=== PATIENT | female | born 1940 | race Caucasian/White ===

== ENCOUNTER 2017-12-09 19:16 | Inpatient (IN) | payer MEDICARE ==
[~2017-12-09] VITALS: Ht 170.2 cm; Wt 75.1 kg
[~2017-12-09 19:16] MED LIST: CIPRO500 MG PO; FLAGYL500 MG PO; LOPRESSOR25 MG PO; MOBIC7.5 MG/5 M PO; PEPCID20 MG PO
[2017-12-09] MEDS ORDERED: SODIUM CHLORIDE 0.9% 500ML 500 ML IV STA (19:41)
[2017-12-09] MEDS ORDERED: MORPHINE SULFATE 2 MG/ML SYR IV STA (19:41)
[2017-12-09] MEDS ORDERED: ONDANSETRON HCL INJ 2 MG/ML VIAL IV STA (19:41)
[2017-12-09] MEDS ORDERED: SERTRALINE HCL50 MG PO (19:43)
[2017-12-09] MEDS ORDERED: SINEMET 25-1001 EACH PO (19:43)
[2017-12-09] MEDS ORDERED: ASPIRIN81 MG PO (19:43)
[2017-12-09] MEDS ORDERED: DIATRIZOATE MEGL/DIATRIZOA SOD 30 ML BTL PO ONE (19:46)
[2017-12-09 19:55] LABS: BASOPHILS % 0.3 % (0.0-1.0); EOSINOPHILS # (AUTO) 0.2 (0.0-0.4); EOSINOPHILS % 3.1 % (0.0-6.0); LYMPHOCYTES # (AUTO) 3.3 (1.0-3.2); LYMPHOCYTES % 45.7 % (18.0-39.1); MEAN CORPUSCULAR HEMOGLOBIN 31.7 pg (28-32); MEAN CORPUSCULAR HGB CONC 33.3 g/dL (31-35); MONOCYTES # (AUTO) 0.7 (0.2-0.8); MONOCYTES % 9.2 % (4.4-11.3); NEUTROPHILS % 41.6 % (38.7-80.0); PLATELET COUNT 353 x10e3/uL (140-360); RED BLOOD COUNT 4.42 x10e6/uL (3.6-5.1); RED CELL DISTRIBUTION WIDTH 12.3 % (11.7-14.4)
[2017-12-09 19:59] LABS: INR 1.02; PROTHROMBIN TIME 12.6 seconds (11.9-14.5)
[2017-12-09 20:00] LABS: PARTIAL THROMBOPLASTIN TIME 27.5 seconds (23.8-35.5)
[2017-12-09 20:04] LABS: CLARITY,URINE SL CLOUDY (CLEAR); COLOR,URINE YELLOW (YELLOW); LEUKOCYTE ESTERASE ,URINE 1+ (NEGATIVE)
[2017-12-09 20:05] LABS: BILIRUBIN,URINE NEGATIVE (NEGATIVE); KETONES,URINE NEGATIVE (NEGATIVE); NITRITE,URINE NEGATIVE (NEGATIVE); PROTEIN,URINE DIPSTICK TRACE (NEGATIVE); URINE UROBILINOGEN 0.2 mg/dL (0.2 - 1)
[2017-12-09 20:07] LABS: ALANINE AMINOTRANSFERASE 8 IU/L (0-55); ALBUMIN 3.7 g/dL (3.5-5.0); ALBUMIN/GLOBULIN RATIO 0.8 (0.8-2.0); ALKALINE PHOSPHATASE 79 IU/L (40-150); AMYLASE 69 U/L (25-125); ANION GAP 13.5 mmol/L (8-16); BLOOD UREA NITROGEN 11 mg/dL (7-26); BUN/CREATININE RATIO 13 (6-25); CALCIUM 9.6 mg/dL (8.4-10.2); CARBON DIOXIDE 28 mmol/L (22-29); CHLORIDE 103 mmol/L (98-107); CREATINE KINASE 48 IU/L (29-168); CREATININE, SERUM 0.84 mg/dL (0.57-1.11); EST GLOMERULAR FILTRATION RATE > 60 ML/MIN (60-); GLUCOSE 89 mg/dL (74-118); LIPASE 31 U/L (8-78); POTASSIUM 3.5 mmol/L (3.5-5.1); SODIUM 141 mmol/L (136-145)
--- NOTE | 2017-12-09 20:14 | Diagnostic Imaging Report ---
EXAMINATION: CHEST SINGLE (PORTABLE) INDICATION: Lower stomach pain. COMPARISON: Chest x-ray 01/31/2015 FINDINGS: AP view TUBES and LINES: None. LUNGS: Lungs are well inflated. Lungs are clear. There is no evidence of pneumonia or pulmonary edema. PLEURA: No pleural effusion or pneumothorax. HEART AND MEDIASTINUM: The cardiomediastinal silhouette is unremarkable. There are atherosclerotic calcifications within the aorta. BONES AND SOFT TISSUES: No acute osseous lesion. Bilateral calcified breast implants. UPPER ABDOMEN: No free air under the diaphragm. IMPRESSION: No acute thoracic abnormality. Signed by: Dr. Julio Barreto M.D. on 12/09/2017 8:11 PM
[2017-12-09 20:16] LABS: BACTERIA,URINE FEW /HPF; EPITHELIAL CELLS,URINE FEW /LPF; MUCUS,URINE FEW (RARE)
--- NOTE | 2017-12-09 21:38 | Diagnostic Imaging Report ---
EXAM: CT ABDOMEN/PELVIS W DATE: 12/09/2017 7:41 PM INDICATION: \S\abd pain \[id number] \S\[id number] COMPARISON: None TECHNIQUE: The abdomen and pelvis were scanned using a multidetector helical scanner. Coronal and sagittal reformations were obtained. Routine protocol performed. IV Contrast: 100 ml Isovue 300/370 FINDINGS: LOWER THORAX: Mild bibasilar atelectasis/scarring.. Note is made of prior mammoplasty. LIVER/BILIARY: Punctate too small to characterize left liver hypodensity. Otherwise unremarkable. GALLBLADDER: Unremarkable SPLEEN: Unremarkable PANCREAS: Unremarkable ADRENALS: No nodules KIDNEYS: Several too small to characterize hypodensities, likely cysts. No hydronephrosis. GI TRACT: Small hiatal hernia. There is mild thickening of the sigmoid colon in an area of diverticulosis with adjacent inflammatory stranding. VESSELS: Moderate atherosclerotic changes. PERITONEUM/RETROPERITONEUM: Trace free fluid along the sigmoid colon LYMPH NODES: No lymphadenopathy REPRODUCTIVE ORGANS/BLADDER: Hysterectomy. Otherwise unremarkable. BONES: Scattered degenerative changes worst at L5-S1. IMPRESSION: Acute uncomplicated sigmoid diverticulitis. Recommend follow-up with colonoscopy once the acute episode has resolved. Signed by: Dr Fartun Pardo MD on 12/09/2017 9:35 PM
[2017-12-09] MEDS ORDERED: MORPHINE SULFATE 2 MG/ML SYR IV PRN (21:45)
[2017-12-09] MEDS: SODIUM CHLORIDE 0.9% 1000ML 1,000 ML IV SCH (21:45)
[2017-12-09] MEDS ORDERED: METRONIDAZOLE 500MG/NS 100ML 100 ML IV SCH (22:00)
[2017-12-09] MEDS ORDERED: SODIUM CHLORIDE 0.9% 50ML 50 ML ONE (22:50)
[2017-12-09] MEDS ORDERED: IOPAMIDOL 370 MG/ML 200 ML INFUS..BTL INJ ONE (22:51)
[2017-12-09] MEDS ORDERED: METRONIDAZOLE 500 MG TAB ONE (23:12)
[2017-12-09] MEDS ORDERED: PIPER-TAZ 3.375 GM 50 ML ONE (23:12)
[2017-12-09] MEDS: PIPER-TAZ 3.375 GM 50 ML IV SCH (23:19)
[2017-12-09] MEDS: METRONIDAZOLE 500 MG TAB PO SCH (23:20)
[2017-12-10] VITALS (7 sets, daily range): BP systolic 127–170; BP diastolic 61–81
[2017-12-10] MEDS: PIPER-TAZ 3.375 GM 50 ML IV SCH
[2017-12-10] MEDS ORDERED: SODIUM CHLORIDE 0.9% 1000ML 1,000 ML ONE (01:27)
[2017-12-10] MEDS: SODIUM CHLORIDE 0.9% 1000ML 1,000 ML IV SCH ×2 (01:29→14:00)
[2017-12-10] MEDS ORDERED: PIPER-TAZ 3.375 GM 50 ML IV SCH (05:00)
[2017-12-10] MEDS ORDERED: METRONIDAZOLE 500 MG TAB PO SCH (05:01)
[2017-12-10 06:35] LABS: BASOPHILS % 0.6 % (0.0-1.0); EOSINOPHILS # (AUTO) 0.3 (0.0-0.4); EOSINOPHILS % 3.7 % (0.0-6.0); HEMATOCRIT 38.1 % (34.2-44.1); HEMOGLOBIN 12.5 g/dL (12.0-16.0); LYMPHOCYTES # (AUTO) 3.1 (1.0-3.2); LYMPHOCYTES % 43.9 % (18.0-39.1); MEAN CORPUSCULAR HEMOGLOBIN 31.5 pg (28-32); MEAN CORPUSCULAR HGB CONC 32.8 g/dL (31-35); MONOCYTES # (AUTO) 0.8 (0.2-0.8); MONOCYTES % 10.9 % (4.4-11.3); NEUTROPHILS # (AUTO) 2.9 (2.1-6.9); NEUTROPHILS % 40.8 % (38.7-80.0); PLATELET COUNT 319 x10e3/uL (140-360); RED BLOOD COUNT 3.97 x10e6/uL (3.6-5.1); RED CELL DISTRIBUTION WIDTH 12.3 % (11.7-14.4)
[2017-12-10 06:49] LABS: ANION GAP 11.3 mmol/L (8-16); BLOOD UREA NITROGEN 10 mg/dL (7-26); BUN/CREATININE RATIO 12 (6-25); CARBON DIOXIDE 26 mmol/L (22-29); CHLORIDE 104 mmol/L (98-107); CREATININE, SERUM 0.82 mg/dL (0.57-1.11); EST GLOMERULAR FILTRATION RATE > 60 ML/MIN (60-); GLUCOSE 94 mg/dL (74-118); POTASSIUM 3.3 mmol/L (3.5-5.1); SODIUM 138 mmol/L (136-145)
[2017-12-10] MEDS ORDERED: POTASSIUM CHLORIDE 20 MEQ TAB CR PO ONE (11:00)
[2017-12-10] MEDS: LEVOFLOXACIN 500MG/D5W 100ML 100 ML IV SCH (11:00)
[2017-12-10] MEDS ORDERED: METRONIDAZOLE 500MG/NS 100ML 100 ML IV SCH (14:00)
[2017-12-10] MEDS: METRONIDAZOLE 500 MG TAB PO SCH ×3 (14:00→21:38)
[2017-12-10] MEDS: HEPARIN SOD (PORCINE) 5,000 UNIT/ML VIAL SC SCH (21:38)
[2017-12-11] VITALS (9 sets, daily range): BP systolic 130–167; BP diastolic 63–90
[2017-12-11] MEDS: METRONIDAZOLE 500 MG TAB PO SCH ×3 (06:34→21:12)
[2017-12-11] MEDS: SODIUM CHLORIDE 0.9% 1000ML 1,000 ML IV SCH ×2 (06:34→16:10)
[2017-12-11] MEDS: HEPARIN SOD (PORCINE) 5,000 UNIT/ML VIAL SC SCH ×2 (09:00→21:13)
[2017-12-11] MEDS: LEVOFLOXACIN 500MG/D5W 100ML 100 ML IV SCH (11:00)
[2017-12-11] MEDS: CARBIDOPA/LEVODOPA 25/100 TAB PO SCH ×3 (13:55→21:12)
[2017-12-12] VITALS (7 sets, daily range): BP systolic 132–153; BP diastolic 62–92
[2017-12-12] MEDS: CARBIDOPA/LEVODOPA 25/100 TAB PO SCH ×5 (05:00→21:00)
[2017-12-12] MEDS: SODIUM CHLORIDE 0.9% 1000ML 1,000 ML IV SCH (05:01)
[2017-12-12] MEDS: METRONIDAZOLE 500 MG TAB PO SCH ×3 (05:01→21:00)
[2017-12-12] MEDS: SERTRALINE HCL 50 MG TAB PO SCH (09:00)
[2017-12-12] MEDS: HEPARIN SOD (PORCINE) 5,000 UNIT/ML VIAL SC SCH ×2 (09:00→21:00)
[2017-12-12] MEDS ORDERED: AMOXICILLIN/CLAVULANATE K 500 MG TAB PO SCH (12:00)
[2017-12-12] MEDS: LEVOFLOXACIN 500MG/D5W 100ML 100 ML IV SCH (12:15)
[2017-12-12] MEDS: ONDANSETRON HCL INJ 2 MG/ML VIAL IV PRN ×2 (14:10→21:00)
[2017-12-13] VITALS: BP 136/74
[2017-12-13 04:00] VITALS: BP 130/63
[2017-12-13 04:32] LABS: BASOPHILS % 0.1 % (0.0-1.0); EOSINOPHILS # (AUTO) 0.3 (0.0-0.4); EOSINOPHILS % 3.4 % (0.0-6.0); HEMATOCRIT 36.9 % (34.2-44.1); HEMOGLOBIN 12.3 g/dL (12.0-16.0); LYMPHOCYTES # (AUTO) 3.1 (1.0-3.2); LYMPHOCYTES % 40.4 % (18.0-39.1); MEAN CORPUSCULAR HEMOGLOBIN 31.4 pg (28-32); MEAN CORPUSCULAR HGB CONC 33.3 g/dL (31-35); MEAN CORPUSCULAR VOLUME 94.1 fL (81-99); MONOCYTES # (AUTO) 0.8 (0.2-0.8); MONOCYTES % 10.5 % (4.4-11.3); NEUTROPHILS # (AUTO) 3.5 (2.1-6.9); NEUTROPHILS % 45.3 % (38.7-80.0); PLATELET COUNT 302 x10e3/uL (140-360); RED BLOOD COUNT 3.92 x10e6/uL (3.6-5.1); RED CELL DISTRIBUTION WIDTH 12.4 % (11.7-14.4)
[2017-12-13 04:47] LABS: ANION GAP 11.2 mmol/L (8-16); CREATININE, SERUM 0.91 mg/dL (0.57-1.11); MAGNESIUM 1.8 MG/DL (1.3-2.1); POTASSIUM 3.2 mmol/L (3.5-5.1)
[2017-12-13] MEDS: METRONIDAZOLE 500 MG TAB PO SCH (05:20)
[2017-12-13] MEDS: CARBIDOPA/LEVODOPA 25/100 TAB PO SCH ×2 (05:20→08:35)
[2017-12-13 08:00] VITALS: BP 129/58
[2017-12-13] MEDS: SERTRALINE HCL 50 MG TAB PO SCH (08:35)
[2017-12-13 08:38] VITALS: BP 130/63
[2017-12-13 12:00] VITALS: BP 119/60
[2017-12-13] MEDS: LEVOFLOXACIN 500MG/D5W 100ML 100 ML IV SCH (12:55)
[2017-12-13] MEDS ORDERED: POTASSIUM CHLORIDE 20 MEQ TAB CR PO NR (14:45)
--- NOTE | 2017-12-13 14:51 | Discharge Summary ---
PRIMARY CARE DOCTOR: Dr. Lizzette Huggins. FINAL DIAGNOSIS: Acute sigmoid diverticulitis. SECONDARY DIAGNOSIS: Parkinson's disease. PROCEDURES/STUDIES PERFORMED: Abdominal CT. CONSULTANTS: None. HISTORY: Per H\T\P. HOSPITAL COURSE: Patient was admitted. Antibiotic was started. Patient did well. Abdominal pain has resolved. Patient will go home on p.o. Levaquin and Flagyl x3 more days to complete a 1-week course. Patient received IV Levaquin and Flagyl while at the hospital. Patient was seen and examined today. Condition on discharge stable. DISCHARGE MEDICATIONS: Please see medication reconciliation form. I have updated her PCP about this hospitalization. She will follow up with her in a week. Patient received heparin subcutaneous for DVT prophylaxis. JUVE JONES M.D. Job#: [id number] EV cc:LIZZETTE HUGGINS MD
[2017-12-13] MEDS ORDERED: LEVAQUIN500 MG PO (15:16)
[2017-12-13] MEDS ORDERED: FLAGYL250 MG PO (15:17)
[2017-12-13] MEDS ORDERED: MORPHINE SULFATE INJ 4 MG/ML INJ IV PRN (15:30)
== END 2017-12-13 16:50 | disposition home or self-care (01) | DRG 392 ==
LOC: ER 19:16 → ERHOLD 22:00 → MED/SURG2 23:46
PROVIDERS: ADMIT Internal Medicine; ATTEND Internal Medicine
DX: K57.92 Diverticulitis of intestine, part unspecified, without perforation or abscess without bleeding (principal); E87.6 Hypokalemia; G20 Parkinson's disease; I10 Essential (primary) hypertension; F17.210 Nicotine dependence, cigarettes, uncomplicated
CPT/HCPCS: 36415; 71045; 74177; 80048; 80053; 81001; 82150; 82550; 82553; 83690; 83735; 84484; 85025; 85610; 85730; 97139; 99284; J1644; J1956; J2270; J2405; J2543; J7030; J7040; Q9967

== ENCOUNTER 2018-08-18 00:29 | Inpatient (IN) | payer MEDICARE ==
[~2018-08-18] VITALS: Ht 172.7 cm; Wt 84.5 kg
[~2018-08-18 00:29] MED LIST changes: +ASPIRIN81 MG PO; +FLAGYL250 MG PO; +LEVAQUIN500 MG PO; +SERTRALINE HCL50 MG PO; +SINEMET 25-1001 EACH PO
--- NOTE | 2018-08-18 01:49 | Diagnostic Imaging Report ---
History:fall Comparison studies: None Technique: Axial images were obtained from the skull base to the vertex. Coronal and sagittal images reconstructed from the axial data. Dose modulation, iterative reconstruction, and/or weight based adjustment of the mA/kV was utilized to reduce the radiation dose to as low as reasonably achievable. Intravenous contrast: None Findings: Scalp/skull: No abnormalities. Extra-axial spaces: No masses. No fluid collections. Brain sulci: Moderately prominent. Ventricles: Moderate compensatory dilatation. No hydrocephalus. Parenchyma: Ill-defined confluent hypodensities in the supratentorial white matter are small vessel ischemic changes. No masses, hemorrhage, acute or chronic cortical vascular insults. Sellar/suprasellar region: No abnormalities. Craniocervical junction: Patent foramen magnum. No Chiari one malformation. Incidental findings: Atherosclerotic calcifications in the carotid siphons . Impression: No acute abnormalities. Chronic findings: 1. Moderate generalized volume loss. 2. Moderate supratentorial white matter small vessel ischemic changes. Signed by: Dr. Dave Han M.D. on 08/18/2018 1:45 AM
--- NOTE | 2018-08-18 01:53 | Diagnostic Imaging Report ---
History: Fall Comparison studies: None Technique: Axial images were obtained through the cervical region.. Coronal and sagittal images reconstructed from the axial data. Dose modulation, iterative reconstruction, and/or weight based adjustment of the mA/kV was utilized to reduce the radiation dose to as low as reasonably achievable. Intravenous contrast: None Findings: Fractures: None. Soft tissues: No gross abnormalities. Atlantoaxial articulation: Intact. Alignment: Normal lordosis. 2 mm anterolisthesis of C7 on T1. No scoliosis. Cervicomedullary junction: No abnormalities. The foramen magnum is patent. Vertebrae: No infection or neoplasm. Postsurgical changes: Patient status post anterior cervical fusion from C4 to C7 Hardware in place. No loosening or failure. The intervening disc spaces are fused. Degenerative changes: Mildly degenerated discs at C3-4 and at C7-T1. Mild facet arthrosis from C7 to T1. Foraminal stenosis, moderate left C3-4, mild left C4-5 and C5-6 due to facet and uncoarthrosis No significant spinal canal stenosis in spite of a disc osteophyte complex at C5-6 IMPRESSION: 1. No acute abnormalities. No fractures. 2. Cannot adequately evaluate for ligament, spinal cord and or vascular abnormalities. 3. Patient status post anterior cervical fusion from C4 to C7. Hardware in place. No loosening or failure. 4. Degenerative changes as described. Signed by: Dr. Dave Han M.D. on 08/18/2018 1:50 AM
--- NOTE | 2018-08-18 01:55 | Diagnostic Imaging Report ---
Examination: Single AP view of the chest. COMPARISON: Portable chest 12/09/2017 INDICATION: Shortness of breath IMPRESSION: 1. Lines and Tubes: None 2. Lungs are grossly clear. No consolidation or effusion. 3. Cardiomediastinal silhouette is normal. Pulmonary vasculature is normal. 4. No acute bony abnormalities. Signed by: Dr. Ted South M.D. on 08/18/2018 1:52 AM
--- NOTE | 2018-08-18 01:57 | Diagnostic Imaging Report ---
EXAMINATION: Pelvis Films CLINICAL HISTORY:Pain, status post fall COMPARISON: None. DISCUSSION: Mild osteopenia. No acute, displaced fractures or dislocations. Mild degenerative changes in bilateral hip joints. No gross soft tissue abnormalities. No osteolytic or osteoblastic lesions. Soft tissues are grossly unremarkable. IMPRESSION: 1. No acute, displaced fracture or dislocation. Signed by: Dr. Ted South M.D. on 08/18/2018 1:53 AM
[2018-08-18] MEDS ORDERED: DIPHENHYDRAMINE HCL ELIX 12.5 MG/5 ML UDC ONE (02:27)
[2018-08-18] MEDS ORDERED: ACETAMINOPHEN 325 MG TAB PO ONE (02:30)
[2018-08-18 02:31] LABS: BASOPHILS % 0.2 % (0.0-1.0); EOSINOPHILS % 0.3 % (0.0-6.0); HEMATOCRIT 45.2 % (34.2-44.1); HEMOGLOBIN 14.9 g/dL (12.0-16.0); LYMPHOCYTES # (AUTO) 1.1 (1.0-3.2); LYMPHOCYTES % 12.5 % (18.0-39.1); MEAN CORPUSCULAR HEMOGLOBIN 31.9 pg (28-32); MEAN CORPUSCULAR VOLUME 96.8 fL (81-99); MONOCYTES # (AUTO) 0.6 (0.2-0.8); MONOCYTES % 6.8 % (4.4-11.3); NEUTROPHILS # (AUTO) 7.2 (2.1-6.9); PLATELET COUNT 298 x10e3/uL (140-360); RED BLOOD COUNT 4.67 x10e6/uL (3.6-5.1); RED CELL DISTRIBUTION WIDTH 12.6 % (11.7-14.4)
[2018-08-18 02:51] LABS: ALANINE AMINOTRANSFERASE 8 IU/L (0-55); ALBUMIN 3.9 g/dL (3.5-5.0); ALKALINE PHOSPHATASE 73 IU/L (40-150); ANION GAP 14.4 mmol/L (8-16); BLOOD UREA NITROGEN 12 mg/dL (7-26); BUN/CREATININE RATIO 13 (6-25); CALCIUM 9.6 mg/dL (8.4-10.2); CARBON DIOXIDE 23 mmol/L (22-29); CHLORIDE 103 mmol/L (98-107); CREATINE KINASE 70 IU/L (29-168); EST GLOMERULAR FILTRATION RATE > 60 ML/MIN (60-); GLUCOSE 121 mg/dL (74-118); POTASSIUM 3.4 mmol/L (3.5-5.1); SODIUM 137 mmol/L (136-145)
[2018-08-18 05:58] LABS: BILIRUBIN,URINE 2+ (NEGATIVE); CLARITY,URINE SL CLOUDY (CLEAR); COLOR,URINE AMBER (YELLOW); KETONES,URINE TRACE (NEGATIVE); LEUKOCYTE ESTERASE ,URINE NEGATIVE (NEGATIVE); PROTEIN,URINE DIPSTICK TRACE (NEGATIVE); URINE UROBILINOGEN 0.2 mg/dL (0.2 - 1)
[2018-08-18 05:59] LABS: NITRITE,URINE NEGATIVE (NEGATIVE)
[2018-08-18 06:15] LABS: BACTERIA,URINE RARE /HPF; EPITHELIAL CELLS,URINE RARE /LPF; WBC,URINE (MAN) 0-5 /HPF (0-5)
[2018-08-18 09:09] LABS: CREATINE KINASE MB 0.8 ng/mL (0-5.0)
--- NOTE | 2018-08-18 10:05 | NUR ---
ECHO COMPLETED AT BEDSIDE PATIENT PLACED ON HOSPITAL BED
--- NOTE | 2018-08-18 11:27 | NUR ---
DR. JONES AT BEDSIDE EVALUATING PATIENT
[2018-08-18] MEDS ORDERED: ONDANSETRON HCL INJ 2MG/ML 2ML 2 MG/ML VIAL IV PRN (11:30)
[2018-08-18] MEDS ORDERED: ACETAMINOPHEN 325 MG TAB PO PRN (11:30)
[2018-08-18] MEDS ORDERED: SODIUM CHLORIDE 0.9% 1000ML 1,000 ML IV SCH (11:30)
[2018-08-18] MEDS ORDERED: POTASSIUM CHLORIDE 20 MEQ TAB CR PO NR (12:00)
--- NOTE | 2018-08-18 13:20 | Diagnostic Imaging Report ---
EXAMINATION: CT of the chest, abdomen and pelvis with contrast. TECHNIQUE: Spiral CT images of the chest, abdomen and pelvis were performed from the lung apices to the lesser trochanters after the intravenous administration of 100 cc of Isovue-370 and the oral administration of water. Coronal and sagittal reformatted images were obtained. COMPARISON: CT abdomen and pelvis with contrast 12/09/2017 CLINICAL HISTORY:Fever of unknown origin DISCUSSION: CHEST: LINES/TUBES: None. LUNGS AND AIRWAYS: Scattered foci of juxtapleural reticular and groundglass opacity compatible with fibrotic change or subsegmental atelectasis, worst in the bases. PLEURA: The pleural spaces are clear. HEART AND MEDIASTINUM: Visualized portions of the thyroid gland appear normal. No ectasia or aneurysmal dilatation of the thoracic aorta. Great vessel origins are normal in caliber and configuration. Atherosclerotic calcifications of the aorta and great vessel origins. Pulmonary outflow tract is of normal caliber. No central pulmonary embolus. Normal heart size. No pericardial effusion. LYMPH NODES: No axillary, hilar, or mediastinal lymphadenopathy is appreciated. BONES AND SOFT TISSUES: Osseous structures are discussed below. Bilateral peripherally calcified prepectoral breast implants. ABDOMEN/PELVIS: HEPATOBILIARY:Subcentimeter hypoattenuating lesion in segment 4 is too small to further characterize but likely to represent a small cyst. Otherwise no focal hepatic lesions. No biliary ductal dilation. The gallbladder is normal. SPLEEN: No splenomegaly. PANCREAS: No focal masses or ductal dilatation. ADRENALS: No adrenal nodules. KIDNEYS/URETERS: Subcentimeter hypoattenuating lesions in the kidneys that are too small to further characterize but likely represent small cysts. No hydronephrosis, calculi, or solid mass lesion. 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 PELVIC ORGANS/BLADDER: The urinary bladder is unremarkable. The uterus is not identified and has presumably been removed. No adnexal mass. PERITONEUM/RETROPERITONEUM: No ascites. No pneumoperitoneum. LYMPH NODES: No pelvic sidewall, retroperitoneal, or mesenteric lymphadenopathy. VESSELS: The abdominal aorta, major branch vessels, and iliac arterial systems are patent with mild atherosclerotic vascular disease. 2 right renal arteries and a single left renal artery are patent. Portal vein, splenic vein, and central superior mesenteric vein are patent. GI TRACT: The large bowel is notable for multiple sigmoid diverticula without wall thickening or inflammatory change. No right lower quadrant inflammatory changes. Small hiatal hernia. Stomach is collapsed with prominence of the rugal folds. Small probable submucosal duodenal lipoma is unchanged. No small bowel dilatation to suggest obstruction. BONES AND SOFT TISSUES: Cervical spine fusion hardware partially visualized. No osseous destructive lesions. Multilevel degenerative disc changes and facet arthropathy of the lumbar spine. No focal soft tissue abnormalities. IMPRESSION: Bandlike subsegmental atelectasis in the bilateral lower lung lobes. Otherwise no acute intrathoracic, abdominal, or pelvic CT abnormalities. No findings to explain the reported history of fever of unknown origin. Incidental findings include atherosclerotic vascular disease and large bowel diverticulosis without findings of diverticulitis. Signed by: Dr. Tristan Kamara M.D. on 08/18/2018 1:17 PM
[2018-08-18] MEDS: CARBIDOPA/LEVODOPA 25/100 TAB PO SCH ×3 (13:21→20:51)
--- NOTE | 2018-08-18 15:00 | NUR ---
The pt. was received from the ER awake,alert and oriented. via pt. bed. The pt. has telemetry and a functional iv with fluids at 100cc's per hour. She presented to the ER with recent history of fall at home but does not remember falling. There are no visible wounds noted. The pt. has cellphone with no moore but credits cards times 6 and was advised to send them home with the family. Dr Mesa has been notified of the pt's arrival and will see the pt.
[2018-08-18 15:49] VITALS: BP 124/76
[2018-08-18] MEDS ORDERED: IOPAMIDOL 370 MG/ML 200 ML INFUS..BTL INJ ONE (18:02)
[2018-08-18] MEDS ORDERED: SODIUM CHLORIDE 0.9% 50ML 50 ML ONE (18:02)
[2018-08-18 20:00] VITALS: BP_SYST 143; BP_SYST 146; BP_DIAS 83; BP_DIAS 92
[2018-08-19] VITALS (7 sets, daily range): BP systolic 118–144; BP diastolic 62–78
--- NOTE | 2018-08-19 01:49 | History and Physical ---
REASON FOR CONSULTATION: Syncope. HISTORY OF PRESENT ILLNESS: Ms. Flores is a 77-year-old female, who is a very difficult historian, who comes into this institution after being found down at her home by her son. The history is collaborated by her son who is at her bedside, which helped shed some light in her care sequence of events. She was in her usual state of health about 2 days ago and was doing well without any issues. At baseline, she has a history of Parkinson's disease and severe cervical and lumbar spine disease and had previous surgical interventions for them. At baseline, she also endorses a neuropathy that starts in her mid-waist section all the way down her legs and at baseline only has pressure-like sensation, however, has diminished sensory loss. The details of why this happened or what happened is not entirely clear, but this has been going on for couple of years now. She was in her usual state of health up until around 6:30 p.m. yesterday. Son reports that he spoke to his mother over the phone and she was doing well. At some point, she then went to the rest room and when the son came back home at 9:30 p.m., she was found down in the rest room, noted to be quite lethargic, not quite acting herself and the patient has no recollection of this. Her son called his son, the patient's grandson for help to carry her. They moved her to the chair of her house and proceeded to examine her and noted just overall generalized weakness and mentation was not quite correct with her being just surprisingly lethargic. At that point in time, they decided to bring her to the emergency room here. Upon arrival, she was noted to be borderline hypotensive, 96/50. She was scanned with a head CT, which was unremarkable as well as a CT of abdomen and pelvis and chest, which showed bibasilar atelectasis and large bowel diverticulosis. C-spine showed C4-C7 fusion plate and a pelvic x-ray was unremarkable. At the present time, son reports that the patient is much sharper in her thinking and is seemingly improving back to her baseline mentation state. She currently endorses just generalized weakness and does not have the energy or strength to sit up or do much. She did not have dizziness. She has never had episode like this before. No known history of seizures. The son does report that she has had history of TIAs in the past. PAST MEDICAL HISTORY: 1. COPD, former smoker. 2. History of anxiety. 3. Parkinson's disease. 4. Chronic back pain. 5. 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 PAST SURGICAL HISTORY: 1. History of hysterectomy. 2. History of lower back and cervical spine surgery. 3. History of carpal tunnel surgery. 4. History of breast surgery. FAMILY HISTORY: Father in his 70s, had heart disease in his 50s, had hypertension and cancer. Mother in her 70s, had hypertension and Parkinson's. SOCIAL HISTORY: She is . She lives with her son. Denies any alcohol or illicit drug use. ALLERGIES: INCLUDE FLU-VACCINE, PNEUMOVAX, ALBUTEROL, STATIN, DIAZEPAM, AND CODEINE. HOME MEDICATIONS: Include aspirin 81 mg daily use, Sinemet 25/100 mg t.i.d., and sertraline 50 mg q.h.s. REVIEW OF SYSTEMS: GENERAL: Denies any current fevers or chills or any weight changes. HEENT: No headaches, visual complaints, sore throat, or stuffiness. RESPIRATORY: Denies any pleuritic chest pain, has occasional cough. CARDIOVASCULAR: Denies any chest pain or subjective palpitations. No orthopnea or PND. GI: Denies any abdominal pain, bright red blood per rectum, melena, or hematemesis. Positive for bowel incontinence. : Has urinary incontinence. MUSCULOSKELETAL: Generalized weakness as noted above. Denies any typical claudication symptoms. ENDOCRINE: Denies any heat or cold intolerance. SKIN: No rashes. NEUROLOGIC: Positive for severe neuropathy in both of her legs and weakness as noted above and confusion as noted above. Remainder of review of systems is negative otherwise as mentioned. PHYSICAL EXAMINATION: VITAL SIGNS: Height of 68 inches, weight of 182 pounds, BMI is 27.7. Temperature of 98.0, pulse of 74, respiratory rate of 20, blood pressure of 140/74, and 98% on room air. GENERAL: This is a well-nourished, well-developed lady, who appears older than stated age, currently in no apparent distress. HEENT: Normocephalic, atraumatic. Pupils are equal, round, and reactive to light. Extraocular movements are intact. Oropharynx is clear. NECK: No elevation of jugular venous pulsation. No carotid bruits. CARDIOVASCULAR: Regular rate and rhythm . Normal S1 and S2. Soft 2/6 systolic murmur in left lower sternal border. LUNGS: Clear to auscultation bilaterally with good air entry. ABDOMEN: Soft, nontender, and obese. Normoactive bowel sounds. No hepatosplenomegaly. BACK: No costovertebral angle tenderness. EXTREMITIES: Warm with 2+ bilateral radial pulses, 2+ bilateral pedal pulses. NEUROLOGIC: Cranial nerves II through XII are intact. She has good probe operator strength and good pushing strength in her legs; however, there is notable central weakness, unable to sit upright and unable to do her gait evaluation. The patient has definite sensory deficits in both of her legs with subjective decreased sensation from the waist down. LABORATORY DATA: White count 8.99, hemoglobin 14.9, hematocrit 45.2, platelets of 298. Sodium 137, potassium 3.4, chloride 103, bicarb 22, BUN 12, creatinine 0.9, glucose of 121. Lactic acid level 23.8. AST 21, ALT 8, alk phos 73, total protein 7.7, albumin of 3.9. Troponin went from 0.017 to 0.015. UA showed 0 to 5 white cells. Chest x-ray is unremarkable. Pelvic x-ray unremarkable. C-spine CT shows C4 through C7 fusion. CT head shows moderate generalized volume loss with ischemic white matter disease. Chest CT shows atelectasis. Abdomen and pelvis CT shows a large bowel diverticulosis. DIAGNOSES: 1. Syncope - based on history and post-advanced confusion and elevated lactic highly suspicious for a neurologic event such as seizure. 2. History of Parkinson's disease, on sinemet therapy. 3. Former smoker. 4. Bowel and bladder incontinence, states secondary to her neuropathy below the waist. 5. Lactic acidosis. PLAN/RECOMMENDATIONS: 1. From a cardiovascular standpoint, the patient had echocardiogram done, which shows normal EF and low significant valvular disease. 2. Carotid artery duplex also done and reviewed showing no significant disease. 3. For the time being, we will recommend perhaps just continuing aspirin therapy. 4. We will monitor the patient's telemetry. 5. We will discuss with primary team. We will likely get a neurological evaluation for their input. 6. We will continue monitoring this patient with you. Thank you for this referral. MD DANDY Yuen/MILLIE /[id number]
[2018-08-19] MEDS: CARBIDOPA/LEVODOPA 25/100 TAB PO SCH ×5 (04:02→20:46)
[2018-08-19 05:00] LABS: BASOPHILS % 0.5 % (0.0-1.0); EOSINOPHILS % 0.4 % (0.0-6.0); HEMATOCRIT 40.8 % (34.2-44.1); HEMOGLOBIN 13.4 g/dL (12.0-16.0); LYMPHOCYTES # (AUTO) 1.1 (1.0-3.2); LYMPHOCYTES % 15.3 % (18.0-39.1); MEAN CORPUSCULAR HEMOGLOBIN 31.5 pg (28-32); MEAN CORPUSCULAR HGB CONC 32.8 g/dL (31-35); MEAN CORPUSCULAR VOLUME 95.8 fL (81-99); MONOCYTES # (AUTO) 0.9 (0.2-0.8); MONOCYTES % 12.7 % (4.4-11.3); NEUTROPHILS # (AUTO) 5.2 (2.1-6.9); NEUTROPHILS % 70.8 % (38.7-80.0); PLATELET COUNT 235 x10e3/uL (140-360); RED BLOOD COUNT 4.26 x10e6/uL (3.6-5.1); RED CELL DISTRIBUTION WIDTH 12.9 % (11.7-14.4)
[2018-08-19 05:39] LABS: ALBUMIN 3.5 g/dL (3.5-5.0); ALKALINE PHOSPHATASE 62 IU/L (40-150); ANION GAP 11.7 mmol/L (8-16); BLOOD UREA NITROGEN 10 mg/dL (7-26); BUN/CREATININE RATIO 12 (6-25); CALCIUM 8.6 mg/dL (8.4-10.2); CARBON DIOXIDE 25 mmol/L (22-29); CHLORIDE 103 mmol/L (98-107); CREATININE, SERUM 0.84 mg/dL (0.57-1.11); EST GLOMERULAR FILTRATION RATE > 60 ML/MIN (60-); GLUCOSE 95 mg/dL (74-118); POTASSIUM 3.7 mmol/L (3.5-5.1); SODIUM 136 mmol/L (136-145)
[2018-08-19 05:41] LABS: ALANINE AMINOTRANSFERASE < 6 IU/L (0-55)
[2018-08-19] MEDS: SERTRALINE HCL 50 MG TAB PO SCH (09:08)
[2018-08-19] MEDS: ASPIRIN 81 MG CHEW TAB PO SCH (09:08)
--- NOTE | 2018-08-19 10:17 | NUR ---
Screened patient for need for PT - she normally lives with her son but he works and she takes care of herself and uses RW. Patient has difficulty with balance and sidestepping and finding center of gravity. Would recommend PT eval, plan care and treat order when MD deems appropriate. Thank you, Yajaira Alfonso, PT Addendum: 08/19/18 at 1019 by Yajaira Alfonso PT Amended: Links added.
[2018-08-19] MEDS: BENZONATATE 100 MG CAP PO SCH ×2 (13:50→20:46)
--- NOTE | 2018-08-19 16:08 | NUR ---
Speech working with patient at this time. Bedside eval.
[2018-08-19] MEDS: PIPER-TAZ 3.375 GM 50 ML IV SCH (17:29)
--- NOTE | 2018-08-19 20:00 | NUR ---
Patient refused to get up for vitals.
[2018-08-20] VITALS (9 sets, daily range): BP systolic 99–147; BP diastolic 55–76
[2018-08-20] MEDS: PIPER-TAZ 3.375 GM 50 ML IV SCH ×5 (00:11→23:11)
--- NOTE | 2018-08-20 00:35 | Consultation ---
DATE OF CONSULTATION: REASON FOR CONSULTATION: The patient has fever and chills, shortness of breath. HISTORY OF PRESENT ILLNESS: This patient, who is a 77-year-old white female, not really any good source of information, but her daughter is at the bedside. The patient has a history of Parkinson's, history of COPD, former smoker, anxiety, chronic back pain, neuropathy. Apparently, the patient comes into the hospital because she was found down at her home by her family. The patient apparently passed out, but she is not so clear about it what happened exactly and then when she was at home and the family found that she is having fever. The patient does not really remember how long she has been having fever and she states that all started suddenly. The patient is currently lying in bed comfortably, has no complaints. PAST MEDICAL HISTORY: COPD, history of smoking in the past and anxiety, Parkinson disease, chronic back pain, and neuropathy. PAST SURGICAL HISTORY: Hysterectomy, low back surgery, cervical spine surgery, carpal tunnel, and breast surgery. SOCIAL HISTORY: There is no smoking, drug abuse, or alcohol abuse. She used to smoke, quit several years ago. REVIEW OF SYSTEMS: At the present time: HEENT: Negative. PULMONARY: Negative. CARDIAC: Negative. : Negative. GI: Negative. SKIN: There is no rash. ALLERGIES: ALBUTEROL AND STATIN. MEDICATIONS: At home, she is on aspirin and Sinemet. LABORATORY DATA: Reviewed. Her blood cultures, no growth in 24 hours. Her white count 7.36, hemoglobin 13, hematocrit of 40. Sodium 136, potassium 3.7, creatinine 0.84. Since admission, the patient was evaluated by Speech Therapy and apparently she does aspirate. Further studies being evaluated. Since she came here, she also had fever. Currently, there is no fever. She had a CAT scan of the abdomen and pelvis, which showed atelectasis in bilateral lower lobe, otherwise no abnormality in the abdomen. PHYSICAL EXAMINATION: GENERAL: She is currently alert, oriented, does not seem to be in acute distress. VITAL SIGNS: Stable. Currently afebrile, but she has been running fever since admission, temperature 101.5. HEENT: She is not pale or icteric. NECK: Supple. CHEST: Few crackles bilaterally. COR: S1, S2. No S3, S4, or murmur. ABDOMEN: Soft. Bowel sounds present. No tenderness. EXTREMITIES: No edema. SKIN: No rash. IMPRESSION AND PLAN: 1. Aspiration pneumonia. We will put the patient on Zosyn 3.375 IV q.6. plan, 5 days of antibiotics. 2. Parkinson disease. The family is telling me that she is at the baseline at the present time. Plan for her to be seen by Neurology. We will follow with you. MD CB Sánchez/MILLIE /[id number]
--- NOTE | 2018-08-20 01:45 | Consultation ---
DATE OF CONSULTATION: 08/19/2018 Neurology Consult Note HISTORY OF PRESENT ILLNESS: Ms. Flores is a 77-year-old right-hand dominant woman with past medical history significant for chronic obstructive pulmonary disease, Parkinson disease, dementia, and idiopathic peripheral neuropathy, admitted to [facility] on August 18, 2018, status post fall. Ms. Flores was in her usual state of health at approximately 1830 on the day of admission. At 2130, her son returned home to find the patient laying on the bathroom floor. Ms. Flores was conscious. However, she was unable to tell her son what had transpired. It is assumed the patient experienced a fall sometime between the hours of 1830 and 2130. It is unknown if the patient lost consciousness, but it is assumed she did. The duration of unconsciousness is not known. Once the patient regained consciousness, she was unable to lift herself from the floor. To her recollection, Ms. Flores does not report tongue biting. She does report urinary incontinence, but this is present at baseline. The patient does not report any bumps, bruises, or abrasions over her head, arms, legs, or torso. The patient does report some pain in her arms, but it is unclear if this is muscular pain or other pain. Ms. Flores does have a history of multiple prior falls. The patient does not report dizziness. Specifically, she does not report lightheadedness or a vertiginous sensation. Over the past few days, the patient has been febrile. Ms. Flores endorses a cough productive of yellow sputum. She does report nausea and vomiting as well as decreased oral intake over the past few days. The patient reports burning with urination, urinary frequency, and urinary urgency. Ms. Flores does not report a personal history of febrile seizures or other seizures. The patient's mother had a questionable history of seizures. The patient does not report prior head trauma or meningitis encephalitis. Ms. Flores was diagnosed with Parkinson disease approximately three years ago. She is prescribed Sinemet 25 to 100 mg one tablet by mouth five times daily for treatment of her Parkinson disease. However, the patient is not adherent with her medication regimen. Ms. Flores does not report symptoms of dysautonomia such as dizziness, palpitations, fluctuations in blood pressure, shortness of breath, etc. The patient does have an outpatient neurologist through [facility]. Ms. Flores was brought to the emergency center at [facility] on the evening of August 18, 2018, status post fall with confusion and generalized weakness. Upon arrival in the emergency center, the patient was febrile with a temperature of 100.9 degrees Fahrenheit, a blood pressure of 122/58 mmHg, and a pulse of 106 beats per minute. It should be noted, the patient became hypotensive with a blood pressure of 96/50 while in the emergency room. The patient's neurological examination was documented as being nonfocal. While in the emergency center, CT of the brain without contrast was performed. There was no evidence of recent large territorial ischemia or hemorrhage on this examination. Ms. Flores was then admitted to [facility] under observation status for further evaluation and treatment. REVIEW OF SYSTEMS: Cough productive of yellow sputum, nausea, vomiting, burning with urination, urinary frequency, urinary urgency, decreased oral intake, status post fall. Otherwise, a 12-point review of systems is negative. PAST MEDICAL HISTORY: Chronic obstructive pulmonary disease, Parkinson disease, dementia, idiopathic peripheral neuropathy, and diverticulosis. PAST SURGICAL HISTORY: Right carpal tunnel release, cervical spine surgery, partial hysterectomy, breast augmentation, and lumbar spine surgery. PAST HOSPITALIZATIONS: Surgeries/procedures as listed, childbirth x2, diverticulitis. FAMILY MEDICAL HISTORY: The patient's father is from an unknown cancer. Ms. Flores's mother is . She had Parkinson disease as well as possible seizures. The patient had three siblings, one brother and two sisters, all of whom are . The brother from natural causes. One sister from an unknown metastatic cancer. The second sister had Parkinson disease. Ms. Flores has two children, a son and a daughter, both of whom are alive. The son was recently diagnosed with a cerebral artery aneurysm. The patient's daughter has chronic obstructive pulmonary disease. SOCIAL HISTORY: Ms. Flores is . She is retired. The patient does not report current or prior tobacco, alcohol, or recreational drug use. HOME MEDICATIONS: Aspirin 81 mg by mouth daily, carbidopa levodopa 25-100 mg one tablet by mouth five times daily, and sertraline 50 mg by mouth daily. HOSPITAL MEDICATIONS: Acetaminophen, DuoNeb, aspirin, Tessalon Perles, Sinemet 25-100, Zofran, Zosyn, and sertraline. ALLERGIES: INFLUENZA VIRUS VACCINE, ALBUTEROL, ATORVASTATIN, CODEINE, DIAZEPAM, AND PNEUMOCOCCAL VACCINE. NO KNOWN FOOD ALLERGIES. NO KNOWN ALLERGIES TO LATEX. NO KNOWN ALLERGIES TO IODINE OR OTHER CONTRAST MATERIALS. PHYSICAL EXAMINATION: VITAL SIGNS: Height 68 inches, weight 182 pounds, BMI 27.7 kg/m2, blood pressure 125/67 mmHg, pulse 71 beats per minute, respiratory rate 18 breaths per minute, oxygen saturation 93% on room air, and temperature 100.4. GENERAL: The patient is awake and alert, does not appear distressed. Masked facies. HEENT: Normocephalic, atraumatic. Pupils are unequal, round, and sluggishly reactive to light. Moist mucous membranes. NECK: Supple. No appreciable thyromegaly. No appreciable carotid bruits. CARDIOVASCULAR: S1, S2, regular rate and rhythm. A low grade systolic ejection murmur is auscultated. No rubs or gallops. RESPIRATORY: Clear to auscultation bilaterally. No wheezes, rhonchi, or rales. EXTREMITIES: The skin is warm and dry. No clubbing, cyanosis, or edema. The posterior tibial and dorsalis pedis pulses are 1+ and symmetric. SKIN: No rashes or lesions. NEUROLOGIC: Memory/Attention: The patient is awake and alert, oriented to person. Cranial Nerves: Cranial nerve I-not tested. Cranial nerves II, III, IV, and -pupils are unequal and round, react sluggishly to light (from 4 mm to 2 mm on the left and from 3 mm to 2 mm on the right). Extraocular movements intact with the exception of impairment of upward gaze. No nystagmus. Cranial nerve V-sensation to light touch and pinprick is intact in the bilateral V1 through V3 distributions. Strength in the temporalis and masseter muscles are within normal limits. Cranial nerve VII-the face is symmetric as are all facial movements. Strength is within normal limits. Cranial nerve VIII-hearing is diminished to finger rub bilaterally. Cranial nerve IX, X-the soft palate elevates equally and symmetrically. Cranial nerve XI-normal strength of the bilateral sternocleidomastoid and trapezius muscles. Cranial nerve XII-the tongue protrudes midline and moves symmetrically from husw-yr-phav. Strength: Bulk is normal. Strength is 5/5 in the bilateral deltoids, biceps, triceps, wrist flexors and extensors, finger flexors and extensors, and intrinsic hand muscles. Bilateral leg flexors are 4-/5. The bilateral leg extensors are 4/5. Tone is mildly increased in the right arm and right leg. DTRs: Deep tendon reflexes are 1+ and symmetric at the triceps, biceps, and brachioradialis. Deep tendon reflexes are absent and symmetric at the patellas and Achilles. Plantar responses are flexor bilaterally. Sensation: Sensation is intact to light touch and pinprick in both arms and both legs. Cerebellar: Jzuplg-ixeq-aalbdn and heel-summers movements are slowed without dysmetria or other impairment. There is bilateral segmental hypokinesis with finger and toe tapping, right greater than left. Gait: Deferred. Speech: Hypophonic. Spontaneous speech is normal without appreciable dysarthria or aphasia. Repetition is intact. Involuntary Movements: None. Pronator Drift: None. LABORATORY DATA: A comprehensive metabolic panel is unremarkable. Cardiac enzymes are negative x2. Lactic acid 23.8. TSH 1.290. The CBC with differential and platelets reveals a white blood cell count of 7.32 with 70.8% neutrophils, 15.3% lymphocytes, 12.7% monocytes, 0.4% eosinophils, and 0.5% basophils. The hemoglobin and hematocrit are 13.4 and 40.8, respectively. The platelet count is 235. A urinalysis revealed omar colored urine, slightly cloudy, trace protein, trace ketones, and 2+ bilirubin. Blood cultures collected on August 18, 2018, revealed no growth after 24 hours. Urine cultures were not collected. DIAGNOSTIC STUDIES: Electrocardiogram on 08/19/2018: Normal sinus rhythm at 73 beats per minute. Pelvis x-ray on 08/18/2018: No acute displaced fracture or dislocation. CT of the brain without contrast on 08/18/2018: On my review, there is no evidence of recent large territorial ischemia, hemorrhage, mass, or mass effect. There is moderate diffuse cerebral atrophy with compensatory dilatation of the ventricles, more than expected for the patient's age. Their findings compatible with moderate to severe chronic small vessel ischemic disease. Chest x-ray on 08/18/2018: 1. Lines and tubes: None. 2. Lungs are grossly clear. No consolidation or effusion. 3. Cardiomediastinal silhouette is normal. Pulmonary vasculature is normal. 4. No acute bony abnormalities. CT of the cervical spine on 08/18/2018: No acute abnormalities are noted. No fractures. Postsurgical changes from an anterior cervical fusion from C4-C7 with hardware is noted. There is multilevel degenerative disk disease. The CT cannot adequately assess for ligament, spinal cord, or vascular abnormalities. Echocardiogram on 08/18/2018: Ejection fraction 60% to 65%. Trace tricuspid regurgitation. Bilateral carotid artery ultrasound with Doppler on 08/18/2018: There is no atherosclerosis in either carotid artery system. Flow is antegrade in the bilateral vertebral arteries. CT of the chest on 08/18/2018: Bandlike subsegmental atelectasis in the bilateral lower lung lobes. CT of the abdomen and pelvis on 08/18/2018: Incidental findings include atherosclerotic vascular disease and large bowel diverticulosis without findings of diverticulitis. No acute abnormalities are noted. There are no findings to explain the reported history of fever of unknown origin. ASSESSMENT AND PLAN: Ms. Flores is a 77-year-old right-hand dominant woman with past medical history significant for Parkinson disease, dementia, and idiopathic peripheral neuropathy (not adherent with medication), admitted to [facility], status post fall on August 18, 2018. A thorough neurological examination has been performed with findings detailed above. The patient's laboratory data and other diagnostic studies were reviewed and are documented above. There was some concern Ms. Flores may have experienced a seizure. However, in my opinion, this is unlikely. Ms. Flores has Parkinson disease and is not adherent with her medication regimen. This puts her at an increased risk for falls. The patient has peripheral neuropathy as well. This puts her at increased risk for falls. Furthermore, the patient endorses symptoms of infectious illness over the past few days including, but not limited to: Fevers, cough productive of yellow sputum, nausea, vomiting, decreased oral intake, burning with urination, urinary urgency, and urinary frequency. In my opinion, one or any combination of these diagnoses caused the patient to fall in her bathroom. As she fell, the patient likely struck her head on a piece of furniture or a wall resulting in loss of consciousness for an unknown duration of time. RECOMMENDATIONS: Are as follows: 1. A urine culture will be ordered for further evaluation of infectious illness. The results of the blood cultures will be followed. Continue treatment with intravenous antibiotics (Zosyn). Continue treatment with acetaminophen 650 mg by mouth every 6 hours as needed for mild pain (1 to 3) or fever greater than 100.8 degrees Fahrenheit. 2. Treatment with the patient's home medication of Sinemet 25 to 100 mg one tablet by mouth five times daily will be continued. 3. Orthostatic vital signs will be taken to evaluate for dysautonomia, which may be seen in patients with Parkinson disease. 4. Defer treatment of the remaining medical comorbidities to the primary and other services following the patient. Thank you for this consultation. I will continue to follow this patient while she remains in the hospital. TIME SPENT: 70 minutes. Carmela Newman MD CP/MILLIE /[id number] MTDD
[2018-08-20] MEDS: CARBIDOPA/LEVODOPA 25/100 TAB PO SCH ×5 (05:24→21:01)
[2018-08-20] MEDS: ASPIRIN 81 MG CHEW TAB PO SCH (09:13)
[2018-08-20] MEDS: BENZONATATE 100 MG CAP PO SCH ×3 (09:13→21:01)
[2018-08-20] MEDS: SERTRALINE HCL 50 MG TAB PO SCH (09:13)
[2018-08-20] MEDS: ALBUTEROL/IPRATROPIUM 3 ML NEB NEB PRN ×3 (09:30→19:15)
--- NOTE | 2018-08-20 11:02 | Progress Note ---
DATE: SUBJECTIVE: The patient did not complain of any lightheadedness or headache. There is no further syncope. She has no fevers. PHYSICAL EXAMINATION: VITAL SIGNS: The patient's temperature is 99.5 last night. Blood pressure is 142/76 and saturation is 91% on room air. HEENT: No facial swelling or erythema. CARDIAC: Regular rate and rhythm with normal S1 and S2. LUNGS: Auscultation of lungs reveals few rhonchi at both bases. ABDOMEN: Soft, nontender. There is no rebound or guarding. EXTREMITIES: No leg edema or calf tenderness. There is no cyanosis or clubbing. SKIN: No rashes. NEUROLOGICAL: No focal abnormalities. IMPRESSION: 1. Aspiration pneumonia with associated fever and sepsis present on admission. 2. Syncope. 3. Parkinson disease. PLAN: 1. Continue current antibiotics. 2. Continue to monitor. 3. Physical therapy. Bethel Perez MD [facility]/MILLIE /[id number]
[2018-08-20] MEDS ORDERED: SODIUM CHLORIDE 0.9% 1000ML 1,000 ML ONE (13:34)
[2018-08-20] MEDS: SODIUM CHLORIDE 0.9% 1000ML 1,000 ML IV SCH (14:12)
--- NOTE | 2018-08-20 21:07 | NUR ---
PATIENT COMPLAINT OF COUGH. SPOKE WITH DR. Duane BARBOSA COVERING FOR DR. JONES. NEW ORDERS RECEIVED.
[2018-08-20] MEDS: HYDROCODONE/CHLORPHENIRAMINE 5 ML LIQCR PO PRN (22:49)
[2018-08-21] VITALS (8 sets, daily range): BP systolic 118–171; BP diastolic 59–86
[2018-08-21] MEDS: SODIUM CHLORIDE 0.9% 1000ML 1,000 ML IV SCH ×2 (02:35→17:25)
--- NOTE | 2018-08-21 04:06 | Diagnostic Imaging Report ---
EXAM: Modified barium swallow INDICATION: Parkinson's and dysphagia COMPARISON: None FINDINGS: This examination was conducted in conjunction with speech pathologist. Patient was given, by mouth, liquids and solids of various consistencies. Examination showed premature spillage to the vallecula with mixed texture. No penetration or aspiration was seen. Mild vallecular, piriform sinus and base of tongue residue was noted with puree. Fluoro time: 4 minutes IMPRESSION: <No evidence of aspiration. Please see speech pathology report for detailed description and recommendations.> Signed by: Dr. Ted South M.D. on 08/21/2018 4:03 AM
[2018-08-21] MEDS: PIPER-TAZ 3.375 GM 50 ML IV SCH ×4 (05:13→23:50)
[2018-08-21] MEDS: CARBIDOPA/LEVODOPA 25/100 TAB PO SCH ×5 (05:13→20:42)
--- NOTE | 2018-08-21 05:47 | NUR ---
BP RECHECKED 152/78 MMHG. PATIENT IS ASYMPTOMATIC.
[2018-08-21 07:07] LABS: BASOPHILS % 0.4 % (0.0-1.0); EOSINOPHILS # (AUTO) 0.1 (0.0-0.4); EOSINOPHILS % 1.4 % (0.0-6.0); HEMATOCRIT 40.3 % (34.2-44.1); HEMOGLOBIN 12.9 g/dL (12.0-16.0); LYMPHOCYTES # (AUTO) 2.5 (1.0-3.2); LYMPHOCYTES % 50.2 % (18.0-39.1); MEAN CORPUSCULAR HEMOGLOBIN 31.8 pg (28-32); MEAN CORPUSCULAR VOLUME 99.3 fL (81-99); MONOCYTES # (AUTO) 0.6 (0.2-0.8); MONOCYTES % 11.6 % (4.4-11.3); NEUTROPHILS # (AUTO) 1.8 (2.1-6.9); NEUTROPHILS % 36.2 % (38.7-80.0); PLATELET COUNT 216 x10e3/uL (140-360); RED BLOOD COUNT 4.06 x10e6/uL (3.6-5.1); RED CELL DISTRIBUTION WIDTH 12.8 % (11.7-14.4)
[2018-08-21] MEDS: ALBUTEROL/IPRATROPIUM 3 ML NEB NEB PRN ×3 (07:18→19:29)
[2018-08-21 07:29] LABS: ALBUMIN 3.1 g/dL (3.5-5.0); ALBUMIN/GLOBULIN RATIO 0.8 (0.8-2.0); ALKALINE PHOSPHATASE 49 IU/L (40-150); ANION GAP 12.7 mmol/L (8-16); BLOOD UREA NITROGEN 10 mg/dL (7-26); BUN/CREATININE RATIO 12 (6-25); CALCIUM 8.5 mg/dL (8.4-10.2); CARBON DIOXIDE 27 mmol/L (22-29); CHLORIDE 103 mmol/L (98-107); CREATININE, SERUM 0.86 mg/dL (0.57-1.11); EST GLOMERULAR FILTRATION RATE > 60 ML/MIN (60-); GLUCOSE 75 mg/dL (74-118); POTASSIUM 3.7 mmol/L (3.5-5.1); SODIUM 139 mmol/L (136-145)
[2018-08-21 07:33] LABS: ALANINE AMINOTRANSFERASE < 6 IU/L (0-55)
[2018-08-21] MEDS: BENZONATATE 100 MG CAP PO SCH ×3 (09:04→20:42)
[2018-08-21] MEDS: ASPIRIN 81 MG CHEW TAB PO SCH (09:04)
[2018-08-21] MEDS: SERTRALINE HCL 50 MG TAB PO SCH (09:04)
--- NOTE | 2018-08-21 12:11 | Progress Note ---
DATE: 08/21/2018 SUBJECTIVE: The patient feels better. She has no syncope. She worked with physical therapy yesterday. PHYSICAL EXAMINATION: VITAL SIGNS: The blood pressure is 137/68 and the pulse is 57. Saturation is 99%. HEENT: Shows no facial swelling or erythema. CARDIAC: Reveals a regular rate and rhythm with a normal S1 and S2. There are no murmurs or rubs. LUNGS: Auscultation of lungs reveals clear breath sounds bilaterally. There is no wheezing. ABDOMEN: Soft and nontender. There is no rebound or guarding. EXTREMITIES: Show no leg edema or calf tenderness. There is no cyanosis or clubbing. LABORATORY DATA: The white blood cell count is 4.98 and the hemoglobin is 12.9. The platelet count is 216. The BUN to creatinine ratio is normal. The other electrolytes are within normal limits. IMPRESSION: 1. Aspiration pneumonia. 2. Syncope. 3. Parkinson disease. PLAN: 1. Continue antibiotics. 2. Physical therapy. 3. Continue monitor. Bethel Perez MD [facility]/MODL /[id number]
[2018-08-21] MEDS: HYDROCODONE/CHLORPHENIRAMINE 5 ML LIQCR PO PRN (12:39)
[2018-08-21 14:38] LABS: COLOR,URINE YELLOW (YELLOW)
[2018-08-21 14:39] LABS: BILIRUBIN,URINE NEGATIVE (NEGATIVE); CLARITY,URINE CLEAR (CLEAR); KETONES,URINE NEGATIVE (NEGATIVE); LEUKOCYTE ESTERASE ,URINE NEGATIVE (NEGATIVE); NITRITE,URINE NEGATIVE (NEGATIVE); PROTEIN,URINE DIPSTICK NEGATIVE (NEGATIVE); URINE UROBILINOGEN 0.2 mg/dL (0.2 - 1)
[2018-08-21 14:47] LABS: BACTERIA,URINE MODERATE /HPF; EPITHELIAL CELLS,URINE FEW /LPF; RBC,URINE 0-5 /HPF (0-5)
[2018-08-22] VITALS (8 sets, daily range): BP systolic 114–141; BP diastolic 57–81
[2018-08-22] MEDS: PIPER-TAZ 3.375 GM 50 ML IV SCH ×4 (06:02→23:41)
[2018-08-22] MEDS: SODIUM CHLORIDE 0.9% 1000ML 1,000 ML IV SCH (06:02)
[2018-08-22] MEDS: HYDROCODONE/CHLORPHENIRAMINE 5 ML LIQCR PO PRN (06:02)
[2018-08-22] MEDS: CARBIDOPA/LEVODOPA 25/100 TAB PO SCH ×5 (06:02→20:57)
--- NOTE | 2018-08-22 07:00 | NUR ---
Received patient mid fowlers position, side rails upx3, call light within reach. AAOX3 to time, person, place. Respirations even and unlabored. 2L NC. Instructed patient to use call light for assistance. Voiced understanding.
--- NOTE | 2018-08-22 08:57 | NUR ---
IMM letter delivered and explained to pt. She verbalized understanding. Signed copy placed in chart. Copy placed in pt's transition of care folder.
[2018-08-22] MEDS: BENZONATATE 100 MG CAP PO SCH ×3 (09:17→20:57)
[2018-08-22] MEDS: ASPIRIN 81 MG CHEW TAB PO SCH (09:17)
[2018-08-22] MEDS: SERTRALINE HCL 50 MG TAB PO SCH (09:17)
--- NOTE | 2018-08-22 14:00 | NUR ---
Resting in bed, family member at bedside. SPO2 94% on room air. Walked patient in hallway. SPO2 92% upon exertion. No s/s of acute distress noted.
--- NOTE | 2018-08-22 15:07 | Progress Note ---
DATE: SUBJECTIVE: The patient is ambulating better, but still complains of dizziness. She has a mild headache. PHYSICAL EXAMINATION: VITAL SIGNS: The patient is afebrile, blood pressure is 120/69, and saturation is 97%. HEENT: Shows no facial swelling or erythema. The nasal mucosa is normal. LYMPHATIC: Shows no submandibular, cervical, or supraclavicular adenopathy. CARDIAC: Reveals a regular rate and rhythm with a normal S1 and S2. There are no murmurs or rubs. LUNGS: Auscultation of the lungs reveals clear breath sounds bilaterally. There is no wheezing. ABDOMEN: Soft and nontender. There is no rebound or guarding. EXTREMITIES: Show no leg edema or calf tenderness. There is no cyanosis or clubbing. SKIN: Shows no rashes. IMPRESSION: 1. Continued dizziness and lightheadedness. 2. Aspiration pneumonia. 3. Parkinson disease. PLAN: 1. Stop Tussionex. 2. Re-evaluation by Neurology. 3. Continue antibiotics. 4. Continue physical therapy. MD HYACINTH Valentine/MILLIE /[id number]
--- NOTE | 2018-08-22 16:20 | NUR ---
GOT CHOICE LETTER SIGNED FOR [facility] FILED IN CHART AND FAXED CLINICALS TO REP. LET KNOW THAT RIGHT NOW NO DISCHARGE ORDER BUT MOST LIKELY FOR TOMORROW, CM WILL NOTIFY IF ANY CHANGES.
--- NOTE | 2018-08-22 16:23 | NUR ---
orthostatic VS in bed 121/69 P55 , sitting 117/99 P66, standing 129/74 P69
--- NOTE | 2018-08-22 18:46 | NUR ---
Resting in bed, no s/s of acute distress noted. Report to be given to oncoming nurse.
--- NOTE | 2018-08-22 20:10 | NUR ---
patient received. patient is resting in bed, AAOx3. Resp even and unlabored. No acute distress noted. Patient denies of any pain or discomfort at this time. call light within reach. instruct to call for assistance. bed low/locked. continue to monitor closely
[2018-08-22] MEDS ORDERED: SODIUM CHLORIDE 0.9% 250ML 250 ML ONE (23:32)
[2018-08-23] VITALS (7 sets, daily range): BP systolic 106–156; BP diastolic 55–80
--- NOTE | 2018-08-23 04:30 | NUR ---
orthostatic VS in bed 123/64 P65 , sitting 120/75 P70, standing 137/70 P74
[2018-08-23] MEDS: PIPER-TAZ 3.375 GM 50 ML IV SCH ×2 (05:29→12:08)
[2018-08-23] MEDS: CARBIDOPA/LEVODOPA 25/100 TAB PO SCH ×4 (05:29→16:50)
[2018-08-23] MEDS: BENZONATATE 100 MG CAP PO SCH ×2 (08:12→16:50)
[2018-08-23] MEDS: SERTRALINE HCL 50 MG TAB PO SCH (08:12)
[2018-08-23] MEDS: ASPIRIN 81 MG CHEW TAB PO SCH (08:12)
[2018-08-23] MEDS ORDERED: CEFDINIR300 MG PO (15:43)
[2018-08-23] MEDS ORDERED: LEVAQUIN500 MG PO (15:43)
--- NOTE | 2018-08-23 18:09 | NUR ---
Left AC IV discontinued. No signs of infiltration noted. 2x2 gauze and tape. Taken via wheelchair to personal care. AAOX3 to time, person,place. Respirations even and unlabored. Discharge instructions, rx, and all personal belongings taken with patient. Accompanied by missael
--- NOTE | 2018-08-23 19:34 | Discharge Summary ---
DISCHARGE MEDICATIONS: 1. Aspirin 81 mg p.o. daily. 2. Sinemet 25/100 one p.o. five times a day. 3. Sertraline 50 mg p.o. daily. 4. Omnicef 300 mg p.o. b.i.d. for 10 days. CONSULTING PHYSICIANS: 1. Dr. Newman of Neurology. 2. Dr. Bee of Cardiology. 3. Dr. Martel of Infectious Disease. DISCHARGE DIAGNOSES: 1. Syncope of unclear etiology. 2. Parkinson disease. 3. Aspiration pneumonia. RADIOGRAPHIC DATA: 1. Modified barium swallow shows no evidence of aspiration. 2. CT scan of the abdomen and pelvis shows no intrathoracic abnormalities. 3. CT scan of the chest shows some bibasilar atelectasis. HISTORY OF PRESENT ILLNESS: The patient is a 77-year-old woman. She has Parkinson disease. She was in her usual state of health until about two days prior to admission. She suddenly became lethargic and son had difficulty arousing her. When she awoke, she complained of severe weakness. HOSPITAL COURSE: The patient was admitted. She was initially evaluated by Cardiology. She had duplex studies of the carotids as well as an echocardiogram that showed no acute disease. She was also evaluated by Neurology. She was felt not to have any acute neurological problems. She was continued on her parkinsonian regimen. The patient was also found to have a urinary tract infection and possible aspiration pneumonia. She received IV antibiotics. At the time of discharge, she felt better. She was eager to go home. She did not want SNF placement. DISPOSITION: The patient will be discharged home. She will have home health. She will also have physical therapy. The patient will follow up with Dr. Matthew in 1 week. MD HYACINTH Valentine/MILLIE /[id number]
== END 2018-08-23 16:59 | disposition home or self-care (01) | DRG 871 ==
LOC: ER 00:29 → ERHOLD 07:05 → MED/SURG2 14:52 → OBSVTOIN 08-21 09:40
PROVIDERS: ADMIT Internal Medicine; ATTEND Internal Medicine
DX: A41.9 Sepsis, unspecified organism (principal); J69.0 Pneumonitis due to inhalation of food and vomit; E87.2 Acidosis; G93.40 Encephalopathy, unspecified; N39.0 Urinary tract infection, site not specified; R55 Syncope and collapse; Z88.7 Allergy status to serum and vaccine; Z88.5 Allergy status to narcotic agent; Z88.8 Allergy status to other drugs, medicaments and biological substances; G20 Parkinson's disease; F02.80 Dementia in other diseases classified elsewhere, unspecified severity, without behavioral disturbance, psychotic disturbance, mood disturbance, and anxiety; J44.9 Chronic obstructive pulmonary disease, unspecified; Z87.891 Personal history of nicotine dependence; Z82.49 Family history of ischemic heart disease and other diseases of the circulatory system; R32 Unspecified urinary incontinence; G60.9 Hereditary and idiopathic neuropathy, unspecified; Z91.81 History of falling; R51 Headache; I95.1 Orthostatic hypotension; E86.0 Dehydration; R53.81 Other malaise; F32.9 Major depressive disorder, single episode, unspecified
CPT/HCPCS: 36415; 70450; 71045; 71260; 72125; 72170; 74177; 74230; 80053; 81001; 82550; 82553; 83605; 83735; 84443; 84484; 85025; 86140; 87040; 87086; 93005; 93306; 93880; 94640; 97139; 99285; G0378; J2543; J7030; J7050; Q9967

== ENCOUNTER 2018-10-06 14:54 | Inpatient (IN) | payer MEDICARE, OTHER ==
[~2018-10-06] VITALS: Ht 172.7 cm; Wt 80.5 kg
[~2018-10-06 14:54] MED LIST changes: +CEFDINIR300 MG PO
[2018-10-06] MEDS ORDERED: SODIUM CHLORIDE 0.9% 1000ML 1,000 ML IV STA (15:20)
[2018-10-06] MEDS ORDERED: ACETAMINOPHEN 1000 MG/100 ML IV ONE (15:27)
[2018-10-06] MEDS ORDERED: DIATRIZOATE MEGL/DIATRIZOA SOD 30 ML BTL PO ONE (15:28)
[2018-10-06] MEDS: CEFEPIME 1GM/NS 0.9% 50 ML 50 ML IV ONE ×2 (15:30→15:47)
[2018-10-06 15:55] LABS: BASOPHILS % 0.3 % (0.0-1.0); EOSINOPHILS % 0.1 % (0.0-6.0); HEMATOCRIT 40.9 % (34.2-44.1); HEMOGLOBIN 13.9 g/dL (12.0-16.0); LYMPHOCYTES # (AUTO) 2.4 (1.0-3.2); LYMPHOCYTES % 15.8 % (18.0-39.1); MEAN CORPUSCULAR HEMOGLOBIN 32.1 pg (28-32); MEAN CORPUSCULAR VOLUME 94.5 fL (81-99); MONOCYTES # (AUTO) 1.1 (0.2-0.8); NEUTROPHILS # (AUTO) 11.6 (2.1-6.9); NEUTROPHILS % 76.5 % (38.7-80.0); PLATELET COUNT 307 x10e3/uL (140-360); RED BLOOD COUNT 4.33 x10e6/uL (3.6-5.1); RED CELL DISTRIBUTION WIDTH 12.5 % (11.7-14.4)
[2018-10-06 16:06] LABS: INR 0.91; PARTIAL THROMBOPLASTIN TIME 30.3 seconds (23.8-35.5); PROTHROMBIN TIME 12.7 seconds (11.9-14.5)
[2018-10-06 16:14] LABS: ALANINE AMINOTRANSFERASE 6 IU/L (0-55); ALBUMIN 3.6 g/dL (3.5-5.0); ALBUMIN/GLOBULIN RATIO 0.8 (0.8-2.0); ALKALINE PHOSPHATASE 68 IU/L (40-150); ANION GAP 12.4 mmol/L (8-16); BLOOD UREA NITROGEN 11 mg/dL (7-26); BUN/CREATININE RATIO 12 (6-25); CALCIUM 9.7 mg/dL (8.4-10.2); CARBON DIOXIDE 26 mmol/L (22-29); CHLORIDE 100 mmol/L (98-107); CREATINE KINASE 42 IU/L (29-168); CREATININE, SERUM 0.89 mg/dL (0.57-1.11); EST GLOMERULAR FILTRATION RATE > 60 ML/MIN (60-); GLUCOSE 123 mg/dL (74-118); POTASSIUM 3.4 mmol/L (3.5-5.1); SODIUM 135 mmol/L (136-145)
[2018-10-06 17:00] LABS: CLARITY,URINE HAZY (CLEAR); COLOR,URINE YELLOW (YELLOW)
[2018-10-06 17:01] LABS: BILIRUBIN,URINE NEGATIVE (NEGATIVE); KETONES,URINE TRACE (NEGATIVE); LEUKOCYTE ESTERASE ,URINE NEGATIVE (NEGATIVE); NITRITE,URINE NEGATIVE (NEGATIVE); PROTEIN,URINE DIPSTICK NEGATIVE (NEGATIVE); URINE UROBILINOGEN 1 mg/dL (0.2 - 1)
[2018-10-06 17:11] LABS: BACTERIA,URINE FEW /HPF; WBC,URINE (MAN) 0-5 /HPF (0-5)
--- NOTE | 2018-10-06 18:22 | Diagnostic Imaging Report ---
EXAM: CT Abdomen and Pelvis WITH contrast INDICATION: Left lower quadrant pain. Fever. COMPARISON: 08/18/2018. TECHNIQUE: Abdomen and pelvis were scanned utilizing a multidetector helical scanner from the lung base to the pubic symphysis after administration of IV contrast. Coronal and sagittal reformations were obtained. Routine protocol was performed. Scan was performed when during portal venous phase. IV CONTRAST: 100 cc Isovue-300. ORAL CONTRAST: Water RADIATION DOSE: Total DLP: 523.52 mGy*cm Estimated effective dose: (DLP x 0.015 x size factor) mSv COMPLICATIONS: None FINDINGS: LINES and TUBES: None. LOWER THORAX: Small hiatal hernia. Bilateral calcified breast implants. Bibasilar dependent atelectasis. HEPATOBILIARY: No focal hepatic lesions. No biliary ductal dilation. GALLBLADDER: No radio-opaque stones or sludge. No wall thickening. SPLEEN: No splenomegaly. PANCREAS: No focal masses or ductal dilatation. ADRENALS: No adrenal nodules KIDNEYS/URETERS: Kidneys enhance symmetrically. Duplicated left renal collecting system. No hydronephrosis. 6 mm cyst in the upper pole of the right kidney. 4 mm low-attenuation lesion in the lateral upper pole of the right kidney is indeterminate, however, stable in the short interval. 5 mm cyst in the upper pole of the left kidney. No stones. GI TRACT: There is asymmetric wall thickening of the sigmoid colon with the left wall measuring 2.7 cm on image 70 series 2. Underlying diverticula. Perisigmoid inflammatory changes and trace volume free fluid without lacunar the fluid collections. Findings are consistent with acute sigmoid diverticulitis. 9 mm diverticulum in the second portion of the duodenum on image 36 series 2. Appendix is nonvisualized. No appendicitis. PELVIC ORGANS/BLADDER: Status post hysterectomy. LYMPH NODES: No lymphadenopathy. VESSELS: There is mild atherosclerotic disease in the aorta and major arterial branches. PERITONEUM / RETROPERITONEUM: No free air or fluid. BONES: Unremarkable. SOFT TISSUES: Unremarkable. IMPRESSION: 1. Acute sigmoid diverticulitis without abscess formation. Signed by: Dr. Duane Mckinley M.D. on 10/06/2018 6:19 PM
[2018-10-06] MEDS ORDERED: METRONIDAZOLE 500MG/NS 100ML 100 ML IV SCH (18:30)
[2018-10-06] MEDS ORDERED: CIPROFLOXACIN 400 MG/D5W 200ML 200 ML IV SCH ×2 (18:45→19:30)
[2018-10-06] MEDS ORDERED: OXYBUTYNIN CHLO15 MG PO (19:25)
[2018-10-06] MEDS ORDERED: ACETAMINOPHEN 325 MG TAB PO PRN (20:00)
[2018-10-06] MEDS ORDERED: SODIUM CHLORIDE 0.9% 250ML 250 ML ONE (20:25)
[2018-10-06] MEDS: METRONIDAZOLE 500MG/NS 100ML 100 ML IV SCH (20:45)
[2018-10-06 21:00] VITALS: BP 159/71
[2018-10-06] MEDS ORDERED: SODIUM CHLORIDE 0.9% 50ML 50 ML ONE (22:22)
[2018-10-06] MEDS ORDERED: IOPAMIDOL 370 MG/ML 200 ML INFUS..BTL INJ ONE (22:22)
[2018-10-07] VITALS (8 sets, daily range): BP systolic 125–149; BP diastolic 58–70
[2018-10-07 05:36] LABS: BASOPHILS % 0.3 % (0.0-1.0); EOSINOPHILS # (AUTO) 0.3 (0.0-0.4); EOSINOPHILS % 2.7 % (0.0-6.0); HEMATOCRIT 37.3 % (34.2-44.1); HEMOGLOBIN 12.5 g/dL (12.0-16.0); LYMPHOCYTES # (AUTO) 2.7 (1.0-3.2); LYMPHOCYTES % 23.8 % (18.0-39.1); MEAN CORPUSCULAR HEMOGLOBIN 32.5 pg (28-32); MEAN CORPUSCULAR HGB CONC 33.5 g/dL (31-35); MEAN CORPUSCULAR VOLUME 96.9 fL (81-99); MONOCYTES # (AUTO) 0.8 (0.2-0.8); MONOCYTES % 7.5 % (4.4-11.3); NEUTROPHILS # (AUTO) 7.3 (2.1-6.9); NEUTROPHILS % 65.3 % (38.7-80.0); PLATELET COUNT 266 x10e3/uL (140-360); RED BLOOD COUNT 3.85 x10e6/uL (3.6-5.1); RED CELL DISTRIBUTION WIDTH 12.9 % (11.7-14.4)
[2018-10-07 05:58] LABS: ANION GAP 12.3 mmol/L (8-16); BLOOD UREA NITROGEN 9 mg/dL (7-26); BUN/CREATININE RATIO 11 (6-25); CALCIUM 9.2 mg/dL (8.4-10.2); CARBON DIOXIDE 26 mmol/L (22-29); CHLORIDE 105 mmol/L (98-107); CREATININE, SERUM 0.79 mg/dL (0.57-1.11); EST GLOMERULAR FILTRATION RATE > 60 ML/MIN (60-); GLUCOSE 81 mg/dL (74-118); POTASSIUM 3.3 mmol/L (3.5-5.1); SODIUM 140 mmol/L (136-145)
[2018-10-07] MEDS: METRONIDAZOLE 500MG/NS 100ML 100 ML IV SCH ×3 (06:00→21:07)
--- NOTE | 2018-10-07 06:00 | NUR ---
PT C/O PAIN TO LEFT AC. IV REMOVED WITH TIP INTACT. PRESSURE DRESSING APPLIED. NEW IV STARTED ON RIGHT FA 22G.
--- NOTE | 2018-10-07 07:50 | NUR ---
MET PATIENT FOR BEDSIDE REPORT, PATIENT ALERT AND AND ORIENTED TO PERSON, PLACE AND TIME, PATIENT DENIED PAIN, PATIENT SHOWED NO SIGNS OF DISTRESS.
[2018-10-07] MEDS ORDERED: LEVOFLOXACIN 750MG/D5W 150ML 150 ML IV SCH (10:45)
[2018-10-07] MEDS ORDERED: ONDANSETRON HCL INJ 2MG/ML 2ML 2 MG/ML VIAL IV PRN (10:45)
[2018-10-07] MEDS ORDERED: POTASSIUM CHLORIDE 20 MEQ TAB CR PO NR (11:00)
[2018-10-07] MEDS: CARBIDOPA/LEVODOPA 25/100 TAB PO SCH ×3 (13:09→21:07)
--- NOTE | 2018-10-07 15:05 | NUR ---
IMM EXPLAINED, SIGNED BY PT AND PLACED ON CHART COPY TO PT IN CARE TRANSITIONS FOLDER
--- NOTE | 2018-10-07 19:15 | NUR ---
Received patient in bedside report. Patient is A&Ox3. Lungs clear. Bowel sounds active. No edema noted. Skin intact. Non-skid footwear in place. R FA 22g IV asymptomatic, intact, and patent. No pain reported at this time. No S&S of distress noted. Bed locked in lowest position, side rails upx2, call light in reach.
[2018-10-07] MEDS: HEPARIN SOD (PORCINE) 5,000 UNIT/ML VIAL SC SCH (21:08)
[2018-10-08] VITALS (8 sets, daily range): BP systolic 126–154; BP diastolic 64–85
--- NOTE | 2018-10-08 04:46 | NUR ---
Patient resting in bed at this time. Patient reports no pain or discomfort. Bed locked in lowest position, side rails upx2, call light in reach.
[2018-10-08] MEDS: CARBIDOPA/LEVODOPA 25/100 TAB PO SCH ×4 (05:00→18:01)
[2018-10-08 05:26] LABS: BASOPHILS % 0.6 % (0.0-1.0); EOSINOPHILS # (AUTO) 0.4 (0.0-0.4); EOSINOPHILS % 5.7 % (0.0-6.0); HEMATOCRIT 36.5 % (34.2-44.1); HEMOGLOBIN 11.9 g/dL (12.0-16.0); LYMPHOCYTES # (AUTO) 2.2 (1.0-3.2); LYMPHOCYTES % 30.1 % (18.0-39.1); MEAN CORPUSCULAR HEMOGLOBIN 31.6 pg (28-32); MEAN CORPUSCULAR HGB CONC 32.6 g/dL (31-35); MEAN CORPUSCULAR VOLUME 97.1 fL (81-99); MONOCYTES # (AUTO) 0.8 (0.2-0.8); MONOCYTES % 10.4 % (4.4-11.3); NEUTROPHILS # (AUTO) 3.9 (2.1-6.9); NEUTROPHILS % 53.1 % (38.7-80.0); PLATELET COUNT 287 x10e3/uL (140-360); RED BLOOD COUNT 3.76 x10e6/uL (3.6-5.1); RED CELL DISTRIBUTION WIDTH 12.6 % (11.7-14.4)
[2018-10-08 05:41] LABS: ANION GAP 12.5 mmol/L (8-16); BLOOD UREA NITROGEN 9 mg/dL (7-26); BUN/CREATININE RATIO 10 (6-25); CALCIUM 9.2 mg/dL (8.4-10.2); CARBON DIOXIDE 27 mmol/L (22-29); CHLORIDE 104 mmol/L (98-107); CREATININE, SERUM 0.86 mg/dL (0.57-1.11); EST GLOMERULAR FILTRATION RATE > 60 ML/MIN (60-); GLUCOSE 85 mg/dL (74-118); MAGNESIUM 2.1 MG/DL (1.3-2.1); POTASSIUM 3.5 mmol/L (3.5-5.1); SODIUM 140 mmol/L (136-145)
[2018-10-08] MEDS: METRONIDAZOLE 500MG/NS 100ML 100 ML IV SCH (05:49)
--- NOTE | 2018-10-08 05:49 | NUR ---
Patient refused sinemet stating it was making her too nauseated and did not want to feel sick again.
--- NOTE | 2018-10-08 06:47 | NUR ---
RECEIVED REPORT FROM OFF GOING RN, MET PATIENT, PATIENT ALERT AND ORIENTED TIMES 4, PATIENT DENIED PAIN, PATIENT SHOWS NO SIGNS OF DISTRESS.
[2018-10-08] MEDS: HEPARIN SOD (PORCINE) 5,000 UNIT/ML VIAL SC SCH ×2 (09:30→21:59)
[2018-10-08] MEDS: SERTRALINE HCL 50 MG TAB PO SCH (09:33)
[2018-10-08] MEDS ORDERED: SODIUM CHLORIDE 0.9% 250ML 250 ML ONE (10:20)
[2018-10-08] MEDS: LEVOFLOXACIN 500 MG TAB PO SCH (11:35)
[2018-10-08] MEDS: METRONIDAZOLE 500 MG TAB PO SCH ×2 (14:40→21:58)
--- NOTE | 2018-10-08 19:20 | NUR ---
Received patient in bedside report. Patient is A&Ox3. Lung sounds clear, bowel sounds active, skin intact. R FA 22g IV asymptomatic, intact, and patent. No pain reported. No S&S of distress noted at this time. Bed locked in lowest position, side rails up x2, call light in reach.
[2018-10-09] VITALS: BP 134/63
[2018-10-09 06:05] VITALS: BP 136/63
[2018-10-09] MEDS: METRONIDAZOLE 500 MG TAB PO SCH ×2 (07:20→14:17)
--- NOTE | 2018-10-09 07:23 | NUR ---
MET PATIENT FOR BEDSIDE REPORT WITH OFF-GOING NURSE DANIELA, PATIENT ASKED HOW SHE IS, PATIENT STATED THAT SHE IS DOING GOOD, PATIENT ALERT AND ORIENTED TO PERSON, PLACE, TIME, AND SITUATION, PATIENT DENIED PAIN, PATIENT SHOW SIGNS OF DISTRESS.
[2018-10-09 07:33] VITALS: BP 140/68
[2018-10-09] MEDS: SERTRALINE HCL 50 MG TAB PO SCH (09:23)
[2018-10-09] MEDS: CARBIDOPA/LEVODOPA 25/100 TAB PO SCH (09:23)
[2018-10-09] MEDS: HEPARIN SOD (PORCINE) 5,000 UNIT/ML VIAL SC SCH (09:23)
[2018-10-09 09:37] VITALS: BP 140/68
[2018-10-09] MEDS ORDERED: SODIUM CHLORIDE 0.9% 250ML 250 ML ONE (10:29)
[2018-10-09 11:52] VITALS: BP 144/70
[2018-10-09] MEDS: LEVOFLOXACIN 500 MG TAB PO SCH (13:03)
[2018-10-09] MEDS ORDERED: ONDANSETRON HCL 4 MG ORAL DISINTEGRATING TAB PO PRN (13:15)
[2018-10-09] MEDS ORDERED: LEVAQUIN500 MG PO (14:47)
[2018-10-09] MEDS ORDERED: METRONIDAZOLE500 MG PO (14:48)
--- NOTE | 2018-10-09 21:13 | Discharge Summary ---
PRIMARY CARE DOCTOR: Dr. Viktoria Huggins. FINAL DIAGNOSIS: Acute sigmoid diverticulitis. SECONDARY DIAGNOSES: 1. Parkinson disease. 2. Chronic obstructive pulmonary disease. CONSULTANTS: None. PROCEDURES/STUDIES PERFORMED: Abdominal CT. HISTORY: Per H and P. HOSPITAL COURSE: The patient was initially put on IV Levaquin and Flagyl. She did well. Her diet was advanced. The patient initially has some rebound tenderness, now this has resolved. She is tolerating solids. The patient had a bowel movement. She is ready to go home on p.o. antibiotics for 5 more days. The patient was seen and examined today. It took 32 minutes total to discharge this patient. I have also updated her primary care doctor about this hospitalization. CONDITION ON DISCHARGE: Improved. DISCHARGE MEDICATIONS: Please see medication reconciliation form. MD DANIEL Marks/MILLIE /[id number]
== END 2018-10-09 15:25 | disposition home or self-care (01) | DRG 392 ==
LOC: ER 14:54 → ERHOLD 19:06 → MED/SURG 19:55
PROVIDERS: ADMIT Internal Medicine; ATTEND Internal Medicine
DX: K57.32 Diverticulitis of large intestine without perforation or abscess without bleeding (principal); Z82.49 Family history of ischemic heart disease and other diseases of the circulatory system; Z88.5 Allergy status to narcotic agent; Z88.7 Allergy status to serum and vaccine; Z88.8 Allergy status to other drugs, medicaments and biological substances; G20 Parkinson's disease; J44.9 Chronic obstructive pulmonary disease, unspecified; Z87.891 Personal history of nicotine dependence; F41.9 Anxiety disorder, unspecified; M54.9 Dorsalgia, unspecified; E87.6 Hypokalemia
CPT/HCPCS: 36415; 51701; 74177; 80048; 80053; 81001; 82550; 82553; 83605; 83735; 84484; 85025; 85610; 85730; 87040; 99284; J0692; J1644; J2405; J7030; J7050; Q9967